=== PATIENT | male | born 1960 | race Caucasian/White ===

== ENCOUNTER 2020-07-16 12:29 | Emergency (ER) | payer OTHER ==
[~2020-07-16] VITALS: Ht 167.6 cm; Wt 70.5 kg
[~2020-07-16 12:29] MED LIST: CALC215T PO; DIVA250T4 PO; FELB600 PO; MULT1CAP32 PO; OXCA300O3 PO; PHEN100C23 PO; QUET50TA PO
[2020-07-16] MEDS ORDERED: IBUPROFEN 800 MG TABLET PO ONE (13:30)
[2020-07-16 14:32] VITALS: BP 111/69
== END 2020-07-16 15:27 | disposition home or self-care (01) ==
LOC: EMS 12:29
DX: S93.402A Sprain of unspecified ligament of left ankle, initial encounter (principal); S90.32XA Contusion of left foot, initial encounter; W20.8XXA Other cause of strike by thrown, projected or falling object, initial encounter; Y93.89 Activity, other specified; Y92.89 Other specified places as the place of occurrence of the external cause; Y99.8 Other external cause status
CPT/HCPCS: 99284